=== PATIENT | male | born 1990 | race Caucasian/White ===

== ENCOUNTER 2016-12-12 13:04 | Emergency (ER) | payer SELFPAY ==
[2016-12-12 13:12] VITALS: BP 134/70
--- NOTE | 2016-12-12 13:30 | ER Document Report ---
ED Medical Screen (RME) - General TRAVEL OUTSIDE OF THE [place] IN LAST 30 DAYS: No - General Chief Complaint: Wound Recheck Stated Complaint: RIGHT ARM PAIN Time Seen by Provider: 12/12/16 13:25 Notes: 26-year-old male patient comes emergency room for suture removal. Had a right arm wound closed 2 weeks ago while working in [place]. Urgent care sent him here due to concern about it looking infected. Considerable swelling under the wound which is not tender and is not really erythematous. He reports his been swollen that way since the wound repair. Exam suggests this is probably just a hematoma under the skin. I have greeted and performed a rapid initial assessment of this patient. A comprehensive ED assessment and evaluation of the patient, analysis of test results and completion of the medical decision making process will be conducted by additional ED providers. (TANA COBIAN) - Related Data Allergies/Adverse Reactions: Sulfa (Sulfonamide Antibiotics) Allergy (Verified 12/12/16 13:07) Past Medical History Renal/ Medical History: Denies: Hx Peritoneal Dialysis Doctor's Discharge - Discharge Clinical Impression: Encounter for wound re-check, Hematoma Condition: Good Disposition: HOME, SELF-CARE Additional Instructions: take antibiotics as prescribed Keep dressings clean and dry, wound was left slightly open to drain Return in 5 days for recheck and final suture removal, earlier if any problems Prescriptions: Cephalexin [Cephalexin 500 MG Capsule] 1 cap PO QID #20 capsule
--- NOTE | 2016-12-12 15:44 | ER Document Report ---
HPI - HPI Patient complains to provider of: suture removal Onset: Other Quality of pain: No pain Severity: None Pain Level: Denies Context: Patient states he had sutures placed to right forearm about 2 weeks ago. Is in today for suture removal, but also reports swelling at laceration site. No drainage. Associated Symptoms: None Exacerbated by: Denies Relieved by: Denies Similar symptoms previously: Yes Recently seen / treated by doctor: Yes - ROS ROS below otherwise negative: Yes Systems Reviewed and Negative: Yes All other systems reviewed and negative - CONSTITUTIONAL Constitutional: DENIES: Fever - EENT EENT: DENIES: Sore Throat - NEURO Neurology: DENIES: Headache - CARDIOVASCULAR Cardiovascular: DENIES: Chest pain - RESPIRATORY Respiratory: DENIES: Trouble Breathing - GASTROINTESTINAL Gastrointestinal: DENIES: Abdominal Pain - MUSCULOSKELETAL Musculoskeletal: REPORTS: Swelling - At laceration site right forearm. - DERM Skin Color: Normal Past Medical History - General Information source: Patient - Social History Smoking Status: Never Smoker Chew tobacco use (# tins/day): No Frequency of alcohol use: Rare Drug Abuse: Marijuana Lives with: Family Family History: Reviewed & Not Pertinent Patient has suicidal ideation: No Patient has homicidal ideation: No - Medical History Medical History: Negative Past Surgical History: Reports: Hx Orthopedic Surgery - left knee - Immunizations Hx Diphtheria, Pertussis, Tetanus Vaccination: Yes - november 2016 Vertical Provider Document - CONSTITUTIONAL Agree With Documented VS: Yes Exam Limitations: No Limitations General Appearance: WD/WN, No Apparent Distress - INFECTION CONTROL TRAVEL OUTSIDE OF THE [place] IN LAST 30 DAYS: No - HEENT HEENT: Atraumatic, Normocephalic - RESPIRATORY Respiratory: Breath Sounds Normal, No Respiratory Distress O2 Sat by Pulse Oximetry: 96 - CARDIOVASCULAR Cardiovascular: Regular Rate, Regular Rhythm - MUSCULOSKELETAL/EXTREMETIES Musculoskeletal/Extremeties: MAEW, FROM, Non-Tender, Edema - At suture site right forearm. negative: Eccymosis - NEURO Level of Consciousness: Awake, Alert, Appropriate - DERM Integumentary: Warm - No signs or symptoms of infection noted at laceration site. Swelling noted., Dry Course - Re-evaluation Re-evalutation: 12/12/16 15:41 Dr. Cabrera advised removing a couple of sutures and use forceps to make small opening to evacuate the hematoma that has developed underneath the laceration. 2 sutures removed from laceration site at right forearm. Wound slightly opened with mosquito forceps. A large amount of clotted blood removed from wound. Irrigated with normal saline, and dressing applied. Patient tolerated the procedure well. Consult Dr. Cabrera. Put patient on Keflex and have return in 5 days for suture removal. 12/12/16 15:44 12/12/16 18:46 - Vital Signs Vital signs: Temp Pulse Resp BP Pulse Ox 97.8 F 78 20 134/70 H 96 12/12/16 13:07 12/12/16 13:07 12/12/16 13:07 12/12/16 13:07 12/12/16 13:07 Discharge - Discharge Clinical Impression: Encounter for wound re-check, Hematoma Condition: Good Disposition: HOME, SELF-CARE Additional Instructions: take antibiotics as prescribed Keep dressings clean and dry, wound was left slightly open to drain Return in 5 days for recheck and final suture removal, earlier if any problems Prescriptions: Cephalexin [Cephalexin 500 MG Capsule] 1 cap PO QID #20 capsule
== END 2016-12-12 14:42 | disposition home or self-care (01) ==
LOC: ER 13:04
DX: Z48.02 Encounter for removal of sutures (principal)
CPT/HCPCS: 99282

== ENCOUNTER 2016-12-17 13:08 | Emergency (ER) | payer BC ==
[2016-12-17 13:38] VITALS: BP 137/70
--- NOTE | 2016-12-17 14:58 | ER Document Report ---
ED Suture/Wound Recheck - General Chief Complaint: Suture Removal Stated Complaint: SUTURE REMOVAL Time Seen by Provider: 12/17/16 14:56 TRAVEL OUTSIDE OF THE [place] IN LAST 30 DAYS: No - HPI Treated in ED (days ago): 21 Previous ED treatment: Laceration repair Quality of pain: No pain Symptoms since procedure: No complaints Exacerbated by: Denies Relieved by: Denies - Related Data Allergies/Adverse Reactions: Sulfa (Sulfonamide Antibiotics) Allergy (Verified 12/12/16 13:07) Past Medical History - Social History Smoking Status: Never Smoker Chew tobacco use (# tins/day): No Frequency of alcohol use: Occasional Drug Abuse: Marijuana Lives with: Family Family History: Reviewed & Not Pertinent Patient has suicidal ideation: No Patient has homicidal ideation: No Renal/ Medical History: Denies: Hx Peritoneal Dialysis Past Surgical History: Reports: Hx Orthopedic Surgery - left knee - Immunizations Hx Diphtheria, Pertussis, Tetanus Vaccination: Yes - november 2016 Review of Systems - Review of Systems Constitutional: No symptoms reported EENT: No symptoms reported Cardiovascular: No symptoms reported Respiratory: No symptoms reported Gastrointestinal: No symptoms reported Genitourinary: No symptoms reported Male Genitourinary: No symptoms reported Musculoskeletal: No symptoms reported Skin: No symptoms reported Hematologic/Lymphatic: No symptoms reported Neurological/Psychological: No symptoms reported Physical Exam - Vital signs Vitals: Temp Pulse Resp BP Pulse Ox 98.1 F 68 18 137/70 H 98 12/17/16 13:36 12/17/16 13:36 12/17/16 13:36 12/17/16 13:36 12/17/16 13:36 Interpretation: Normal - Skin Skin Temperature: Warm Skin Moisture: Dry Skin Color: Normal Skin irregularity: Laceration - sutures intact, no s/s infection Course - Vital Signs Vital signs: Temp Pulse Resp BP Pulse Ox 98.1 F 68 18 137/70 H 98 12/17/16 13:36 12/17/16 13:36 12/17/16 13:36 12/17/16 13:36 12/17/16 13:36 Discharge - Discharge Clinical Impression: Visit for suture removal Condition: Stable Disposition: HOME, SELF-CARE
== END 2016-12-17 15:21 | disposition home or self-care (01) ==
LOC: ER 13:08
DX: Z48.02 Encounter for removal of sutures (principal)

== ENCOUNTER 2016-12-19 18:12 | Emergency (ER) | payer BC ==
[2016-12-19 18:19] VITALS: BP 132/57
--- NOTE | 2016-12-19 18:55 | ER Document Report ---
HPI - HPI Patient complains to provider of: wound recheck Onset: Other - 3 wks Onset/Duration: Persistent Quality of pain: No pain Pain Level: Denies Context: Patient states that he cut his right forearm on metal 3 weeks ago. Patient was seen here on December 12 and had 2 sutures removed as well as a hematoma from his incision. Patient was placed on Keflex at that time. Patient states that he is for the most part been taking his antibiotics as prescribed although still has several days worth. Patient states that on 17 December he was here and had sutures removed. Patient has been trying to keep wound closed with butterfly strips but states the wound has continued to have drainage. Patient is concerned about possible infection and wanted to see if he needs to get additional sutures. Associated Symptoms: Other - wound to r forear. denies: Fever Exacerbated by: Denies Relieved by: Denies Similar symptoms previously: No Recently seen / treated by doctor: Yes - ROS ROS below otherwise negative: Yes Systems Reviewed and Negative: Yes All other systems reviewed and negative - CONSTITUTIONAL Constitutional: DENIES: Fever, Chills - DERM Skin Color: Normal Notes: open wound Past Medical History - General Information source: Patient - Social History Smoking Status: Never Smoker Frequency of alcohol use: Occasional Drug Abuse: Marijuana Occupation: none Family History: Reviewed & Not Pertinent Patient has suicidal ideation: No Patient has homicidal ideation: No - Medical History Medical History: Negative Endocrine Medical History: Denies: Hx Diabetes Mellitus Type 2 Renal/ Medical History: Denies: Hx Peritoneal Dialysis Past Surgical History: Reports: Hx Orthopedic Surgery - left knee - Immunizations Hx Diphtheria, Pertussis, Tetanus Vaccination: Yes - november 2016 Vertical Provider Document - CONSTITUTIONAL Agree With Documented VS: Yes Exam Limitations: No Limitations General Appearance: WD/WN, No Apparent Distress - INFECTION CONTROL TRAVEL OUTSIDE OF THE [place] IN LAST 30 DAYS: No - HEENT HEENT: Atraumatic, Normocephalic - NECK Neck: Normal Inspection, Supple - RESPIRATORY Respiratory: Breath Sounds Normal, No Respiratory Distress, Chest Non-Tender O2 Sat by Pulse Oximetry: 97 - CARDIOVASCULAR Cardiovascular: Regular Rate, Regular Rhythm, No Murmur Pulses: Normal: Radial - MUSCULOSKELETAL/EXTREMETIES Musculoskeletal/Extremeties: MAEW - NEURO Level of Consciousness: Awake, Alert, Appropriate Motor/Sensory: No Motor Deficit - DERM Integumentary: Warm, Dry Notes: Healing 3.5 cm laceration to proximal right forearm, no surrounding erythema, no purulent drainage, no concern for cellulitis or abscess at this time. Wound bed with granulation tissue and minimal serous drainage Course - Vital Signs Vital signs: Temp Pulse Resp BP Pulse Ox 98.1 F 69 16 132/57 H 97 12/19/16 18:17 12/19/16 18:17 12/19/16 18:17 12/19/16 18:17 12/19/16 18:17 Discharge - Discharge Clinical Impression: Encounter for wound re-check Condition: Stable Disposition: HOME, SELF-CARE Instructions: Dressing Instructions for Open Wounds ([facility]) Additional Instructions: Return immediately for any new or worsening symptoms Followup with your primary care provider, call tomorrow to make a followup appointment Wound culture is pending Cleanse wound daily with antibacterial soap and water, redressed wound applying a thin coating of bacitracin and nonadherent gauze. Avoid any use of Neosporin. Finish your antibiotics as previously prescribed Referrals: [facility] [Provider Group] - Follow up as needed
== END 2016-12-19 19:18 | disposition home or self-care (01) ==
LOC: ER 18:12
DX: S51.811D Laceration without foreign body of right forearm, subsequent encounter (principal); W26.8XXD Contact with other sharp object(s), not elsewhere classified, subsequent encounter
CPT/HCPCS: 87070; 87075; 87077; 87186; 87205; 99282